=== PATIENT | male | born 1955 ===

== ENCOUNTER 2020-12-30 11:42 | Day surgery (SDC) | payer OTHER ==
[~2020-12-30] VITALS: Ht 182.9 cm; Wt 71.3 kg
[~2020-12-30 11:42] MED LIST: LEVSOD25 PO
--- NOTE | 2020-12-30 14:03 | NUR ---
12/30/20 1403 Ariadna Carmen VANCOMYCIN 1 GM STARTED AT 1345- LATE ENTRY
--- NOTE | 2020-12-30 14:37 | NUR ---
12/30/20 1437 Celestine Miller BUPIVACAINE 0.5% 150 MG MIXED W/ EPI 0.15MG PER ORDER FOR INJECTION AT OPSITE BY DR KEARNS. 30 MLS INJECTED.
== END 2020-12-30 16:22 | disposition home or self-care (01) ==
LOC: ORSCSDS 11:42
PROVIDERS: Podiatrist Foot & Ankle Surgery
PROC: 0SGM04Z Fusion of Right Metatarsal-Phalangeal Joint with Internal Fixation Device, Open Approach (ICD-10-PCS; principal; 2020-12-30 13:15)
DX: M20.21 Hallux rigidus, right foot (principal); E03.9 Hypothyroidism, unspecified; Z79.899 Other long term (current) drug therapy
CPT/HCPCS: C1713; C1769; J0171; J1100; J1885; J2250; J2405; J2704; J3010; J3370; J7120

== ENCOUNTER 2021-02-21 07:58 | Day surgery (SDC) | payer OTHER ==
[~2021-02-21] VITALS: Ht 182.9 cm; Wt 74.3 kg
--- NOTE | 2021-02-21 09:24 | NUR ---
02/21/21 0924 Celestine Miller BUPIVACAINE 0.5% 50 MLS MIXED WITH EPI 0.25 ML PER ORDER TO CONSTITITUE BUPIVACAINE 0.5% 1:200,000 FOR INJECTION AT OPSITE BY DR KEARNS.
== END 2021-02-21 11:04 | disposition home or self-care (01) ==
LOC: ORSCSDS 07:58
PROVIDERS: Podiatrist Foot & Ankle Surgery
PROC: 0SGN04Z Fusion of Left Metatarsal-Phalangeal Joint with Internal Fixation Device, Open Approach (ICD-10-PCS; principal; 2021-02-21 09:15)
DX: M20.22 Hallux rigidus, left foot (principal); E03.9 Hypothyroidism, unspecified; Z79.899 Other long term (current) drug therapy
CPT/HCPCS: C1713; C1769; J0171; J2704; J3010; J3370; J7120

== ENCOUNTER 2022-02-12 11:34 | Day surgery (SDC) | payer MEDICARE ==
[~2022-02-12] VITALS: Ht 182.9 cm; Wt 70.6 kg
[2022-02-12] MEDS ORDERED: MERIBIN5 MG (11:58)
[2022-02-12] MEDS ORDERED: SELENIOUS40 MCG/1 M (11:58)
--- NOTE | 2022-02-12 12:30 | NUR ---
02/12/22 1230 Shala Diaz FOUR ATTEMPTS AT IV. FIRST ATTEMPT AT IV BY ADMITTING MA IN RIGHT FOREARM MISSED. SECOND ATTEMPT AT IV BY ADMITTING MA IN RIGHT AC INFILTRATED. THIRD ATTEMT AT IV BY MA IN LEFT HAND UNSUCCESSFUL. FOURTH ATTEMPT AT IV BY MA IN LEFT AC SUCCESSFUL.
--- NOTE | 2022-02-12 14:30 | NUR ---
02/12/22 1430 Dinora Silver 5ML NACL USED FOR POLYP REMOVAL.
== END 2022-02-12 14:56 | disposition home or self-care (01) ==
LOC: ORSCSDS 11:34
PROVIDERS: Internal Medicine Gastroenterology
PROC: 0DBK8ZX Excision of Ascending Colon, Via Natural or Artificial Opening Endoscopic, Diagnostic (ICD-10-PCS; principal; 2022-02-12 13:00)
PROC: 0DBL8ZX Excision of Transverse Colon, Via Natural or Artificial Opening Endoscopic, Diagnostic (ICD-10-PCS; principal; 2022-02-12 13:00)
PROC: 0DBP8ZX Excision of Rectum, Via Natural or Artificial Opening Endoscopic, Diagnostic (ICD-10-PCS; principal; 2022-02-12 13:00)
DX: Z12.11 Encounter for screening for malignant neoplasm of colon (principal); Z86.010 Personal history of colon polyps; K59.00 Constipation, unspecified; D12.2 Benign neoplasm of ascending colon; D12.3 Benign neoplasm of transverse colon; D12.8 Benign neoplasm of rectum; K62.1 Rectal polyp; K64.8 Other hemorrhoids; K64.4 Residual hemorrhoidal skin tags; E03.9 Hypothyroidism, unspecified; Z79.899 Other long term (current) drug therapy
CPT/HCPCS: 88305; J0461; J2405; J2704; J7120; Q9968